=== PATIENT | female | born 1985 | race Caucasian/White ===

== ENCOUNTER 2018-11-22 06:00 | Inpatient (IN) ==
[2018-11-22] MEDS ORDERED: Famotidine 20 MG/2 ML VIAL IVP PRN (06:20)
[2018-11-22] MEDS ORDERED: *HR* Nalbuphine 10 MG/ML AMPUL IVP PRN (06:20)
[2018-11-22] MEDS ORDERED: Metoclopramide 10 MG/2 ML VIAL IVP PRN (06:20)
[2018-11-22] MEDS ORDERED: Naloxone 0.4 MG/ML INJ IVP PRN (06:20)
[2018-11-22] MEDS ORDERED: Ondansetron 4 MG/2 ML VIAL IVP PRN (06:20)
[2018-11-22] MEDS ORDERED: miSOPROStol 25 MCG TABLET PO PRN (06:20)
[2018-11-22 06:59] LABS: Basophils % 0.5 %; Eosinophils # 0.1 K/mcL (0.0-0.6); Eosinophils % 1.4 %; Hematocrit 34.2 % (35.3-44.9); Immature Granulocytes % 0.2 % (0-4); Lymphocytes # 2.3 K/mcL (0.6-4.6); Lymphocytes % 26.5 %; Mean Corpuscular HGB Conc 29.2 g/dL (31.6-35.5); Mean Corpuscular Hemoglobin 21.4 pg (28.0-33.3); Mean Corpuscular Volume 73.2 fL (83.0-100.0); Mean Platelet Volume 10.1 fL (9.4-12.4); Monocytes # 0.7 K/mcL (0.0-1.3); Monocytes % 8.1 %; Neutrophils # 5.4 K/mcL (1.6-8.9); Platelet Count 240 K/mcL (140-400); Red Blood Count 4.67 M/mcL (3.82-4.97); Red Cell Distribution Width 21.6 % (11.5-14.5); Segmented Neutrophils % 63.3 %
[2018-11-22 07:08] LABS: Amphetamine Screen,Urine Negative ng/mL (Cutoff=1000); Barbiturate Screen,Urine Negative ng/mL (Cutoff=200)
[2018-11-22 07:09] LABS: Benzodiazepines Screen,Urine Negative ng/mL (Cutoff=300); Cannabinoid Screen,Urine Negative ng/mL (Cutoff = 50); Cocaine Screen,Urine Negative ng/mL (Cutoff= 300); Opiate Screen,Urine Negative ng/mL (Cutoff=300); Phencyclidine Screen,Urine Negative ng/mL (Cutoff=25)
[2018-11-22 07:26] LABS: Platelet Estimate Normal (Normal)
--- NOTE | 2018-11-22 07:42 | Anesthesia Evaluation PreOp ---
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 HX Other Medical History: Other (anemia (iron def), [place], BMI= 42, previous gastric sleeve 2016,) Anesthesia History: No Prior Anesthetic Complications, Past Anesthesia Alcohol Use: none Drug use: none Medications and Allergies Cetirizine HCl [Zyrtec] 10 mg PO DAILY 10/20/18 [History] Cholecalciferol (Vitd3)/Vit K2 [Dosoquin Tablet] 1 each PO DAILY 10/20/18 [History] Citalopram [CeleXA] 20 mg PO DAILY 10/20/18 [History] Iron Polysaccharide Complex [Pro Fe] 180 mg PO TID 10/20/18 [History] Leucovorin/Pyridox/Mecobalamin [Folinic-Plus Caplet] 1 each PO DAILY 10/20/18 [History] Montelukast [Singulair] 10 mg PO DAILY 10/20/18 [History] Pantoprazole Sodium [Protonix] 40 mg PO DAILY 10/20/18 [History] Vit #108/Iron/FA [ One Tablet] 1 each PO DAILY 10/20/18 [History] Allergy/AdvReac Type Severity Reaction Status Date / Time dextromethorphan Allergy Hives Verified 10/20/18 14:49 [From Supress DX] guaifenesin [From Supress DX] Allergy Hives Verified 10/20/18 14:49 phenylephrine Allergy Hives Verified 10/20/18 14:49 [From Supress DX] Sulfa (Sulfonamide Allergy Hives Verified 10/20/18 14:49 Antibiotics) Anesthesia Results - Labs 11/22/18 06:46 Anesthesia Exam - HEENT Pupil (Motor): Pupils equal Mallampati: II Teeth: Normal Oral Opening: Greater than 3 - MARKETING FINANCIAL ANALYST LOC: Oriented MARKETING FINANCIAL ANALYST Motor: Normal RUE, Normal LUE, Normal RLE, Normal LLE, Normal Face MARKETING FINANCIAL ANALYST Sensory: Normal: RUE, LUE, RLE, LLE, Face - Cardiac Rhythm: Regular Murmur: None - Pulmonary Breath Sounds: bilateral Clear Respiratory Effort: Symmetrical Anesthesia Assess/Plan ASA Score: 3 (MO, asthma,) Level of consciousness: Cooperative, Oriented Anesthetic Plan: General, Spinal, Epidural Monitoring Plan: Standard Monitors Recovery Plan: PACU
[2018-11-22] MEDS ORDERED: Epidural Premix (fent/bupiv) 110 ML EP SCH (07:45)
--- NOTE | 2018-11-22 08:42 | OB Labor Progress Note ---
Date of Encounter: 11/22/18 Time of Encounter: 08:34 Labor Progress Note - Subjective Subjective: Patient reports she is comfortable and feels few contractions. - Cervix Cervix: 1/60/-3 - Heart Tones Heart Tones: FHR category I - [place]: Few - Interventions Interventions: SVE Double arora balloon catheter placed per Dr. Russell's request and each balloon inflated with 60ml saline - Plan Physician notified: No Plan: Continue induction management per Dr. Russell's plan Anticipate
[2018-11-22] MEDS: Ringers Solution, Lactated 1,000 ML IVC SCH ×2 (10:22→16:23)
[2018-11-22] MEDS ORDERED: Lidocaine -MPF 2% 5 ML VIAL ONE (10:41)
--- NOTE | 2018-11-22 14:31 | Anesthesia Procedures ---
Date of Encounter: 11/22/18 Time of Encounter: 14:06 Procedures: Anesthesia - Epidural/Spinal Patient ID/Chart reviewed: Yes Patient examined: Yes OB Eval: Gestational age: term OB Eval: : 2 OB Eval: Hx Para: 0 OB Eval: Contractions: Non-stressed pattern (previous late jun/ ) Consent Obtained: Yes Supplemental Oxygen: None/Room Air Site Prep: Aseptic Technique, Sterile prep and drape, 0.5% Chlorhexidine/Alcohol Patient position: upright Local Anesthetic: Lidocaine 1% Amount of Local Anesthetic used: 2 Touhy Needle Gauge: 18 Touhy Needle Depth (cm): 8 Catheter Depth at Skin (cm): 14 Test Dose (1.5% Lido + Epi): Volume given (mls): 4 Test Dose Result: Negative Loading Dose: Other: 10ml from solution Loading Dose Administered: Thru Catheter Infusion Med: 0.125% Bupivacaine w/ 2 mcg/ml Fentanyl Infusion Rate (mls/hr): [address]: Tegaderm, Tape Interspace Used: L3-L4 Loss of Resistance (JAYNA): Yes (saline) Blood: No CSF: Yes (with 25g sprotte purposeful, no INJ.) Paresthesia: No Procedure: vss though out, FHR stable per RN's
[2018-11-22] MEDS ORDERED: Oxytocin 20 units/ LR 1000 mL 20 UNIT/1,000 ML BAG IVC ONE (16:20)
[2018-11-22] MEDS ORDERED: Oxytocin 20 units/ LR 1000 mL 20 UNIT/1,000 ML BAG IVC SCH (16:30)
--- NOTE | 2018-11-22 17:30 | OB/GYN History & Physical ---
Date of Encounter: 11/22/18 Time of Encounter: 08:20 Assessment and Plan (1) 39 weeks gestation of Current visit: Yes Status: Acute 33yo female at 39w2d presents for induction of labor. Will begin cytotec and place arora when able. Expect . History of Present Illness Chief complaint: Here for induction of labor HPI: Ms. Laughlin is a 33 year old female female presents for induction of labor. She is currently 29w2d EGA. thus far was uncomplicated. On arrival she reports irregular uc's, no vb or lof. Past Med Surg Social Fam HX - Past Medical History Source: patient, old records reviewed Medical history: asthma Additional medical history: anemia Psychiatric history: depression - Past Surgical History Additional surgical history: gastric sleeve, T&A, septoplasty - Social History Smoking Status: Never smoker Smokeless Tobacco Status: No Alcohol use: none Drug use: none - Family History Mother Age: 65 Living Status: Still Living Hx Family Cardiac Disorders: No Hx Family Respiratory Disorders: No Hx Family Cancer: No Hx Family GI Disorders: No Hx Family Genitourinary Disorders: No Hx Family Endocrine Disorder: No Hx Family Musculoskeletal Disorders: No Hx Family Neuromuscular Disorders: No Hx Family Neurologic Disorders: No Hx Family HEENT Disorders: No Hx Family Autoimmune Disorders: No Hx Family Reproductive Disorders: No Hx Family Psychosocial Disorders: No Hx Family Medical Disorders: Yes (hypothroid) Obstetrical History - Pregnancies : 2 Ab's: 1 Medications and Allergies Cetirizine HCl [Zyrtec] 10 mg PO DAILY 10/20/18 [History] Cholecalciferol (Vitd3)/Vit K2 [Dosoquin Tablet] 1 each PO DAILY 10/20/18 [History] Citalopram [CeleXA] 20 mg PO DAILY 10/20/18 [History] Iron Polysaccharide Complex [Pro Fe] 180 mg PO TID 10/20/18 [History] Leucovorin/Pyridox/Mecobalamin [Folinic-Plus Caplet] 1 each PO DAILY 10/20/18 [History] Montelukast [Singulair] 10 mg PO DAILY 10/20/18 [History] Pantoprazole Sodium [Protonix] 40 mg PO DAILY 10/20/18 [History] Vit #108/Iron/FA [ One Tablet] 1 each PO DAILY 10/20/18 [History] Allergy/AdvReac Type Severity Reaction Status Date / Time dextromethorphan Allergy Hives Verified 10/20/18 14:49 [From Supress DX] guaifenesin [From Supress DX] Allergy Hives Verified 10/20/18 14:49 phenylephrine Allergy Hives Verified 10/20/18 14:49 [From Supress DX] Sulfa (Sulfonamide Allergy Hives Verified 10/20/18 14:49 Antibiotics) Exam - Vital Signs Vital signs: Initial Vital Signs Pulse Resp BP 71 15 121/73 11/22/18 06:24 11/22/18 06:24 11/22/18 06:24 - Constitutional Constitutional: well developed - HEENT HEENT: EOMI, PERRL - Neck Neck exam: full ROM - Lungs Respiratory exam: CTAB - Cardiovascular Cardiovascular exam: RRR - Abdomen Abdomen: Present: gravid - Extremities Extremities exam: full ROM - Cervix Dilation: 1 Effacement: 60 Station: -2 Results Result Diagrams: 11/22/18 06:46 Abnormal lab results Hgb 10.0 g/dL (11.5-15.4) L 11/22/18 06:46 Hct 34.2 % (35.3-44.9) L 11/22/18 06:46 MCV 73.2 fL (83.0-100.0) L 11/22/18 06:46 MCH 21.4 pg (28.0-33.3) L 11/22/18 06:46 MCHC 29.2 g/dL (31.6-35.5) L 11/22/18 06:46 RDW 21.6 % (11.5-14.5) H 11/22/18 06:46 All other labs normal. - VTE Reasons for not Prescribing Prophylaxis: Treatment not Indicated - Low risk for VTE
--- NOTE | 2018-11-22 17:42 | OB Labor Progress Note ---
Date of Encounter: 11/22/18 Time of Encounter: 17:40 Labor Progress Note - Subjective Subjective: Pt reports stronger uc's on pit - Cervix Cervix: Pt reports uc's getting stronger on pitocin. Rollins remains in place. - Heart Tones Heart Tones: RNST - Plan Plan: Continue labor.
--- NOTE | 2018-11-22 22:00 | OB Labor Progress Note ---
Date of Encounter: 11/22/18 Time of Encounter: 21:58 Labor Progress Note - Subjective Subjective: Pt comfortable with epidural - Cervix Cervix: 7/80/-2 - Heart Tones Heart Tones: FHT's 110's with good variability. Roberto variable decels to upper 80's lasting 20-30 seconds noted. - Interventions Interventions: FSE and IUP placed, ptiocin turned off b/c of freq decels. Will give amnio infusion. - Plan Plan: Watch FHT's closely. Pt also with sig blood tinged fluid that appears to be likely from cervical change, but will watch closely. D/w pt concern over decels and possiblity of abruption and d/w pt fact that may be required if situation doesn't improve.
[2018-11-22] MEDS ORDERED: 0.9 % Sodium Chloride 1,000 ML ONE (22:05)
[2018-11-23] MEDS ORDERED: Lidocaine/EPI 1:200k 2% PF 20 ML VIAL ONE (02:07)
--- NOTE | 2018-11-23 02:12 | OB Labor Progress Note ---
Date of Encounter: 11/23/18 Time of Encounter: 02:09 Labor Progress Note - Subjective Subjective: Pt comfortable - Cervix Cervix: 5/90/-2 - Heart Tones Heart Tones: 110's with decels noted. 5 min decel to 90 noted. - Interventions Interventions: pit off - Plan Plan: Pt with recurrent decels and no progress in labor, actually cervix is less dilated now that at time arora came out. D/w pt concern over intollerance to labor and lack of progress. D/w pt options and will proceed with primar c- section.
[2018-11-23] MEDS ORDERED: Ondansetron 4 MG/2 ML VIAL ONE (02:19)
[2018-11-23] MEDS ORDERED: Ringers Solution, Lactated 1,000 ML ONE (02:20)
[2018-11-23] MEDS ORDERED: Naloxone 0.4 MG/ML INJ IVP PRN ×2 (02:34→05:55)
[2018-11-23] MEDS ORDERED: *HR* HYDROmorphone (PF) 1 MG/ML SYRINGE IVP PRN ×2 (02:34)
[2018-11-23] MEDS ORDERED: *HR* Promethazine 25 MG/ML VIAL IVP PRN (02:34)
[2018-11-23] MEDS ORDERED: *HR* OxyCODONE/APAP 5/325 TABLET PO PRN ×2 (02:34→05:55)
[2018-11-23] MEDS ORDERED: Acetaminophen IV 1,000 MG/100 ML INFUS..BTL IVPB ONE (02:34)
[2018-11-23] MEDS ORDERED: *HR* Meperidine 25 MG/ML SYRINGE IVP PRN (02:34)
[2018-11-23] MEDS ORDERED: Ibuprofen 400 MG TABLET PO PRN (02:34)
[2018-11-23] MEDS ORDERED: Ondansetron 4 MG/2 ML VIAL IVP ONE (02:34)
[2018-11-23] MEDS ORDERED: *HR* OxyCODONE Immed Rel 5 MG TABLET PO PRN (02:34)
[2018-11-23] MEDS ORDERED: *HR* Oxytocin 10 UNIT/ML VIAL IM ONE (02:35)
--- NOTE | 2018-11-23 02:38 | OB Labor Progress Note ---
Date of Encounter: 11/23/18 Time of Encounter: 02:07 Labor Progress Note - Subjective Subjective: Pt comfortable with epidural - Cervix Cervix: /-2
[2018-11-23] MEDS ORDERED: Ringers Solution, Lactated 1,000 ML IVC SCH ×2 (02:45→05:55)
[2018-11-23] MEDS ORDERED: *HR* Morphine Sulfate/PF 10 MG/10 ML AMPUL ONE (02:58)
--- NOTE | 2018-11-23 03:21 | OB/GYN Procedure Note ---
Section - Date of procedure: 11/23/18 Preop diagnosis: arrest of descent, arrest of dilation, category 2 FHT tracing Post-op diagnosis: other (Nuchal cord 2) Procedure: section, primary low transverse Surgeon: Rodrick James Blood Loss: [phone] Was there an nurses medical assistants phlebotomists present: Yes Peritoneal Dialysis Registered Nurse: Elizabeth Gibson Anesthesiologist: Nettie Yeung Tape Sewer: Pj Samson Anesthesia Type: Epidural section complications: none Disposition: L&D Recovery Room Specimens: Placenta - Infant (s) A Infant Delivery Date: 11/23/18 Infant Delivery Time: 02:35 Presentation: vertex Gender: Male Viability: Viable Gram Weight: 3.095 kg at 1 minute: 8 at 5 minutes: 9 Shoulder Dystocia: not encountered Specimens collected: cord blood Placenta: spontaneous Cord: nuchal cord (2) - Narrative Narrative: 33-year-old 2 para 0 female sent labor and delivery for induction of labor. She underwent Cytotec and Rollins induction as well as Pitocin. Throughout the day she did have reactive nonstress test other with occasional variable decelerations. 2 then undergo Cytotec induction with Rollins catheter initially 1 point she was felt to be 7 cm dilated however she begin having more frequent and prolonged decelerations last of which lasted approximately 5 minutes down to heartbeat of 80-85 bpm baseline 1:15. This time cervix is now felt to be 5-6 cm dilated 90% effaced and -2 station. Because she was now having more frequent and more prolonged decelerations and make any progress were having Pitocin off decision was made be best to proceed with primary section for failure to progress in labor and intolerance to labor. Patient was aware of options as well as operative risks and signed appropriate consent. Description procedure: Patient was taken operating room where the epidural was dosed. She is prepped draped in usual sterile fashion bladder was drained of clear urine with Rollins catheter. Scalpel was used to make incision which was sharply taken down the rectus fascia. Fascia incised midline fascial incision was extended bilaterally. Plan is developed and rectus muscle rectus fascia distally peritoneum was entered bluntly without difficulty. Bladder blade was placed and bladder flap was developed and lower uterine segment. Scalpel was used to make a low transverse uterine incision this was extended bl untly bilaterally. We did attempt to deliver from vertex presentation however this was somewhat difficult therefore Kiwi vacuum was applied times to a pressure of 550 mmHg maximum. Each time the Kiwi did pop off and eventually we were able to deliver the baby from vertex presentation with fundal pressure. Once infant was delivered to was nuchal cord 2 which was reduced. Cord was clamped and cut and was handed nurse personnel who were in attendance. weight was found to be 6 lbs. 13 oz. this male infant's Apgars were 8 at 1 minute and 9 at 5 minutes. Placenta was delivered manually without difficulty and uterine cavity was massaged free of all residual tissue. Uterus was closed with an 0 Vicryl running lock stitch. After closure of the uterus again patient's performed hemostasis was ensured. Fascia was closed with oh loop PDS in running manner. After closure of the fascia again irrigation was performed hemostasis was ensured. Deep subcutaneous tissue was closed with oh plain catgut suture. Skin edges reapproximated with 4-0 Vicryl. Amador dressing was applied all sponge counts counts are correct patient was taken recovery in good condition
[2018-11-23] MEDS ORDERED: Ondansetron 4 MG/2 ML VIAL IVP PRN (05:55)
[2018-11-23] MEDS ORDERED: Rho Immune Globulin 1,500 UNIT SYRINGE IM ONE (05:55)
[2018-11-23] MEDS ORDERED: Oxytocin 20 units/ LR 1000 mL 20 UNIT/1,000 ML BAG IVC SCH ×2 (05:55)
[2018-11-23] MEDS ORDERED: Sennosides 8.6 MG TABLET PO PRN (05:55)
[2018-11-23] MEDS ORDERED: Metoclopramide 10 MG/2 ML VIAL IVP PRN (05:55)
[2018-11-23] MEDS: Prenatal Vit/FA 1 EACH TABLET PO SCH (08:58)
[2018-11-23] MEDS: Loratadine 10 MG TABLET PO SCH (08:58)
[2018-11-23] MEDS: metroNIDAZOLE 500 MG TABLET PO SCH ×2 (14:08→20:58)
[2018-11-23] MEDS: cephALEXin 500 MG CAPSULE PO SCH (14:08)
[2018-11-23] MEDS: Ibuprofen 600 MG TABLET PO PRN (20:58)
[2018-11-24] MEDS: Simethicone 80 MG TAB.CHEW PO PRN ×2 (04:30→20:56)
[2018-11-24] MEDS: Ibuprofen 600 MG TABLET PO PRN ×2 (04:31→17:37)
[2018-11-24 04:58] LABS: Immature Granulocytes % 0.3 % (0-4)
[2018-11-24 04:59] LABS: Basophils % 0.3 %; Eosinophils # 0.2 K/mcL (0.0-0.6); Eosinophils % 1.7 %; Hematocrit 26.7 % (35.3-44.9); Hemoglobin 7.7 g/dL (11.5-15.4); Lymphocytes # 2.3 K/mcL (0.6-4.6); Lymphocytes % 22.4 %; Mean Corpuscular HGB Conc 28.8 g/dL (31.6-35.5); Mean Corpuscular Hemoglobin 21.6 pg (28.0-33.3); Mean Platelet Volume 11.1 fL (9.4-12.4); Monocytes # 1.1 K/mcL (0.0-1.3); Monocytes % 10.5 %; Neutrophils # 6.7 K/mcL (1.6-8.9); Platelet Count 184 K/mcL (140-400); Red Blood Count 3.56 M/mcL (3.82-4.97); Segmented Neutrophils % 64.8 %
[2018-11-24 05:44] LABS: Anisocytosis 2+ (Not Present); Platelet Estimate Normal (Normal)
[2018-11-24 05:45] LABS: Hypochromasia Present (Not Present); Microcytosis Present (Not Present)
--- NOTE | 2018-11-24 09:05 | OB/GYN Progress Note ---
Date of Encounter: 11/24/18 Time of Encounter: 09:03 - Assessment and Plan (1) delivery delivered Current Visit: Yes Status: Acute Stable POD#1 Will increase iron to BID Continue all other current management Anticipate discharge tomorrow (2) anemia Current Visit: Yes Status: Acute will increase to iron BID (3) Mother currently breast-feeding Current Visit: Yes Status: Acute Subjective - Subjective Interval history: Stable, pain well managed, tolerates po diet, breast feeding, Patient reports: appetite normal, voiding normally, pain well controlled : doing well, nursing well Objective - Vital Signs Latest vital signs: Vital Signs Temp Pulse Resp BP Pulse Ox 11/24/18 00:45 97.9 F 73 14 109/70 99 11/23/18 20:55 98.2 F 80 14 109/71 99 11/23/18 17:30 16 11/23/18 17:15 99.1 F 87 16 117/70 11/23/18 13:07 98.1 F 71 16 114/75 Intake and Output 11/23/18 11/24/18 11/24/18 23:59 07:59 15:59 Intake Total 590 / 1290 Output Total 1800 / 1975 900 / 900 Balance -1210 / -685 -900 / -900 Intake: Oral 590 / 1290 Output: Urine 600 / 600 900 / 900 Catheter 1200 / 1375 Other: Meal Dinner Percent of Meal Consumed 100% Weight 110.087 kg Patient Weight 11/24/18 23:59 Weight 110.087 kg - Exam Lungs: bilateral: normal Chest: Normal S1, Normal S2 Extremities: Present: normal Abdomen: Present: normal appearance, soft Incision: Present: dressed (BLANCA) Uterus: Present: firm (U) - Labs Labs: Laboratory Results - last 24 hr 11/24/18 04:22 WBC 10.3 RBC 3.56 L Hgb 7.7 L D Hct 26.7 L MCV 75.0 L MCH 21.6 L MCHC 28.8 L RDW 21.0 H Plt Count 184 MPV 11.1 Immature Gran % 0.3 Seg Neutrophils % 64.8 Lymphocytes % 22.4 Monocytes % 10.5 Eosinophils % 1.7 Basophils % 0.3 Neutrophils # 6.7 Lymphocytes # 2.3 Monocytes # 1.1 Eosinophils # 0.2 Basophils # 0.0 Platelet Estimate Normal Hypochromasia Present A Anisocytosis 2+ A Microcytosis Present A
[2018-11-24] MEDS: Prenatal Vit/FA 1 EACH TABLET PO SCH (10:23)
[2018-11-24] MEDS: Loratadine 10 MG TABLET PO SCH (10:24)
[2018-11-24] MEDS: cephALEXin 500 MG CAPSULE PO SCH ×2 (10:24→20:55)
[2018-11-24] MEDS: metroNIDAZOLE 500 MG TABLET PO SCH (10:24)
[2018-11-25] MEDS: Ibuprofen 600 MG TABLET PO PRN (01:04)
[2018-11-25 07:48] LABS: Basophils % 0.7 %; Eosinophils # 0.2 K/mcL (0.0-0.6); Eosinophils % 4.3 %; Hematocrit 24.7 % (35.3-44.9); Hemoglobin 7.2 g/dL (11.5-15.4); Immature Granulocytes % 0.5 % (0-4); Lymphocytes # 1.5 K/mcL (0.6-4.6); Lymphocytes % 26.7 %; Mean Corpuscular HGB Conc 29.1 g/dL (31.6-35.5); Mean Corpuscular Hemoglobin 21.6 pg (28.0-33.3); Mean Corpuscular Volume 74.2 fL (83.0-100.0); Mean Platelet Volume 10.7 fL (9.4-12.4); Monocytes # 0.5 K/mcL (0.0-1.3); Monocytes % 8.5 %; Neutrophils # 3.3 K/mcL (1.6-8.9); Platelet Count 180 K/mcL (140-400); Red Blood Count 3.33 M/mcL (3.82-4.97); Red Cell Distribution Width 21.3 % (11.5-14.5); Segmented Neutrophils % 59.3 %
[2018-11-25] MEDS: Prenatal Vit/FA 1 EACH TABLET PO SCH (08:04)
[2018-11-25] MEDS: metroNIDAZOLE 500 MG TABLET PO SCH (08:04)
[2018-11-25] MEDS: cephALEXin 500 MG CAPSULE PO SCH (08:04)
[2018-11-25] MEDS: Loratadine 10 MG TABLET PO SCH (08:05)
[2018-11-25 09:27] VITALS: BP 120/76
--- NOTE | 2018-11-25 10:18 | Discharge Summary ---
Date of Encounter: 11/25/18 Time of Encounter: 10:14 - Discharge Diagnosis (1) delivery delivered Priority: Primary Status: Acute Comments: Pt meeting all post-op milestones. Pain well controlled. Tolerating regular t. Voiding spontaneously. Passing flatus. Mood is good. She denies any s/sx anemia. She is requesting discharge home as soon as possible. Anemia discussed at length including concern that her hgb is down to 7.2 from 7.7 yesterday. I discussed concern that it could continue to drop and pt could need transfusion. Pt still desires discharge home. Strict return precautions given. (2) Mother currently breast-feeding Priority: Secondary Status: Acute Comments: well established. Pt has pump at home. (3) anemia Priority: Secondary Status: Acute Comments: home on iron BID - Discharge Medications Prescriptions: New metroNIDAZOLE [Flagyl] 500 mg PO BID #14 tablet cephALEXin [Keflex] 500 mg PO BID #14 capsule Ibuprofen [Motrin] 600 mg PO Q6H PRN #60 tablet PRN Reason: Cramping OxyCODONE/APAP 5/325 [Percocet 5/325 MG] 1 each PO Q6HR PRN 7 Days #28 tablet PRN Reason: Moderate pain 4-6 Docusate [Colace] 100 mg PO BID #60 capsule Simethicone [Gas-X] 80 mg PO TID PRN tab.chew PRN Reason: Dyspepsia Continued Cetirizine HCl [Zyrtec] 10 mg PO DAILY Leucovorin/Pyridox/Mecobalamin [Folinic-Plus Caplet] 1 each PO DAILY Cholecalciferol (Vitd3)/Vit K2 [Dosoquin Tablet] 1 each PO DAILY Montelukast [Singulair] 10 mg PO DAILY Citalopram [CeleXA] 20 mg PO DAILY Vit #108/Iron/FA [ One Tablet] 1 each PO DAILY Iron Polysaccharide Complex [Pro Fe] 180 mg PO TID #90 capsule Discontinued Pantoprazole Sodium [Protonix] 40 mg PO DAILY Home Medications: Cetirizine HCl [Zyrtec] 10 mg PO DAILY 10/20/18 [History] Cholecalciferol (Vitd3)/Vit K2 [Dosoquin Tablet] 1 each PO DAILY 10/20/18 [History] Citalopram [CeleXA] 20 mg PO DAILY 10/20/18 [History] Leucovorin/Pyridox/Mecobalamin [Folinic-Plus Caplet] 1 each PO DAILY 10/20/18 [History] Montelukast [Singulair] 10 mg PO DAILY 10/20/18 [History] Vit #108/Iron/FA [ One Tablet] 1 each PO DAILY 10/20/18 [History] Docusate [Colace] 100 mg PO BID #60 capsule 11/25/18 [Rx] Ibuprofen [Motrin] 600 mg PO Q6H PRN #60 tablet 11/25/18 [Rx] Iron Polysaccharide Complex [Pro Fe] 180 mg PO TID #90 capsule 11/25/18 [Rx] OxyCODONE/APAP 5/325 [Percocet 5/325 MG] 1 each PO Q6HR PRN 7 Days #28 tablet 11/25/18 [Rx] Simethicone [Gas-X] 80 mg PO TID PRN tab.chew 11/25/18 [Rx] cephALEXin [Keflex] 500 mg PO BID #14 capsule 11/25/18 [Rx] metroNIDAZOLE [Flagyl] 500 mg PO BID #14 tablet 11/25/18 [Rx] Allergies/Adverse Reactions: Allergy/AdvReac Type Severity Reaction Status Date / Time dextromethorphan Allergy Hives Verified 10/20/18 14:49 [From Supress DX] guaifenesin [From Supress DX] Allergy Hives Verified 10/20/18 14:49 phenylephrine Allergy Hives Verified 10/20/18 14:49 [From Supress DX] Sulfa (Sulfonamide Allergy Hives Verified 10/20/18 14:49 Antibiotics) Data Procedures and tests throughout hospitalization: Laboratory Tests 11/22/18 11/22/18 11/24/18 06:30 06:46 04:22 WBC 8.6 10.3 RBC 4.67 3.56 L Hgb 10.0 L 7.7 L D Hct 34.2 L 26.7 L MCV 73.2 L 75.0 L MCH 21.4 L 21.6 L MCHC 29.2 L 28.8 L RDW 21.6 H 21.0 H Plt Count 240 184 MPV 10.1 11.1 Immature Gran % 0.2 0.3 Seg Neutrophils % 63.3 64.8 Lymphocytes % 26.5 22.4 Monocytes % 8.1 10.5 Eosinophils % 1.4 1.7 Basophils % 0.5 0.3 Neutrophils # 5.4 6.7 Lymphocytes # 2.3 2.3 Monocytes # 0.7 1.1 Eosinophils # 0.1 0.2 Basophils # 0.0 0.0 Platelet Estimate Normal Normal Hypochromasia Present A Anisocytosis 2+ A Microcytosis Present A Urine Opiates Screen Negative Ur Barbiturates Screen Negative Ur Phencyclidine Scrn Negative Ur Amphetamines Screen Negative U Benzodiazepines Scrn Negative Urine Cocaine Screen Negative U Marijuana (THC) Screen Negative Ur Drug Screen Interp See Below 11/25/18 07:14 WBC 5.5 RBC 3.33 L Hgb 7.2 L Hct 24.7 L MCV 74.2 L MCH 21.6 L MCHC 29.1 L RDW 21.3 H Plt Count 180 MPV 10.7 Immature Gran % 0.5 Seg Neutrophils % 59.3 Lymphocytes % 26.7 Monocytes % 8.5 Eosinophils % 4.3 Basophils % 0.7 Neutrophils # 3.3 Lymphocytes # 1.5 Monocytes # 0.5 Eosinophils # 0.2 Basophils # 0.0 Platelet Estimate Hypochromasia Anisocytosis Microcytosis Urine Opiates Screen Ur Barbiturates Screen Ur Phencyclidine Scrn Ur Amphetamines Screen U Benzodiazepines Scrn Urine Cocaine Screen U Marijuana (THC) Screen Ur Drug Screen Interp Labs on day of discharge: Labs from last 24 hours 11/25/18 07:14 WBC 5.5 RBC 3.33 L Hgb 7.2 L Hct 24.7 L MCV 74.2 L MCH 21.6 L MCHC 29.1 L RDW 21.3 H Plt Count 180 MPV 10.7 Immature Gran % 0.5 Seg Neutrophils % 59.3 Lymphocytes % 26.7 Monocytes % 8.5 Eosinophils % 4.3 Basophils % 0.7 Neutrophils # 3.3 Lymphocytes # 1.5 Monocytes # 0.5 Eosinophils # 0.2 Basophils # 0.0 Date of admission: 11/22/18 06:19 Primary care physician: Natalia Baca CNP Discharging clinician: Chelsie Zhao Anticipated date of discharge: 11/25/18 - Patient Status Disposition: Home, Self-Care Condition: Good Functional capacity at discharge: independent ambulation Overall status at discharge: patient is progressing back to baseline - Discharge Instructions Follow Up With: Natalia Baca CNP [Primary Care Provider] - Rodrick Russell MD [Partnered Physician] - - Diet and Activity Activity: increase activity as tolerated Diet: regular diet Hospital Course Reason for admission: induction of labor Delivery: Episiotomy: none Laceration: none Other procedures: none complications: none Discharge diagnosis: IUP at term delivered [place] baby: male Hospital course: Date of procedure: 11/23/18 Preop diagnosis: arrest of descent, arrest of dilation, category 2 FHT tracing Post-op diagnosis: other (Nuchal cord 2) Procedure: section, primary low transverse Surgeon: Rodrick James Blood Loss: 600 Was there an membership assistant present: Yes Strip Winder: Elizabeth Gibson Anesthesiologist: Nettie Yeung Singer Back Tender: Pj Samson Anesthesia Type: Epidural section complications: none Disposition: L&D Recovery Room Specimens: Placenta - (s) Infant A Delivery Date: 11/23/18 Delivery Time: 02:35 Presentation: vertex Gender: Male Viability: Viable Gram Weight: 3.095 kg at 1 minute: 8 at 5 minutes: 9 Shoulder Dystocia: not encountered Specimens collected: cord blood Placenta: spontaneous Cord: nuchal cord (2) Time Attestation: Total time spent providing and/or coordinating discharge services: Time Spent: Less than 30 minutes - VTE Reasons for not Prescribing Prophylaxis: Treatment not Indicated - Low risk for VTE Documentation of Mechanical Device: Intermittent pneumatic compression device Exam - Constitutional Vitals: Temp Pulse Resp BP Pulse Ox 98.3 F 75 14 120/76 99 11/25/18 07:30 11/25/18 07:30 11/25/18 07:30 11/25/18 07:30 11/25/18 07:30 General appearance IM: A&O X 3 - Respiratory Respiratory exam: Present: CTAB - Cardiovascular Cardiovascular exam IM: Present: RRR - GI/Abdominal GI/Abdominal exam IM: soft, no peritoneal signs Incision: dressed (BLANCA with small amount old drainage) - Uterine Tone: Firm Uterus Position: 1 Finger Below Umbilicus (exam limited by pt habitus) - Extremities Exam Extremities exam IM: Present: normal inspection - Neurological Exam Neurological exam: normal gait, oriented X3 - Psychiatric Additional comments: reports good mood, declines contraception, safe spacing discussed. - Other Additional findings: [facility] reviewed
== END 2018-11-25 11:20 | disposition home or self-care (01) | DRG 788 ==
LOC: 1NENULAB 06:19 → 1NENUOBS 11-23 05:25
PROVIDERS: ADMIT Registered Nurse; ATTEND Registered Nurse

== ENCOUNTER 2022-03-27 05:38 | Inpatient (IN) ==
[2022-03-27] MEDS ORDERED: Ringers Solution, Lactated 1,000 ML ONE ×2 (06:06→06:55)
[2022-03-27] MEDS ORDERED: *HR* HYDROmorphone PF 0.5 MG/0.5 ML SYRINGE IVP PRN (06:33)
[2022-03-27] MEDS ORDERED: Acetaminophen IV 1,000 MG/100 ML BAG IVPB PRN (06:33)
[2022-03-27] MEDS ORDERED: *HR* Meperidine 25 MG/ML SYRINGE IVP PRN (06:33)
[2022-03-27] MEDS ORDERED: *HR* Labetalol 20 MG/4 ML SYRINGE IVP PRN (06:33)
[2022-03-27] MEDS ORDERED: Promethazine 6.25 MG in Water for inj. (sterile) 20 ML IVPB PRN (06:33)
[2022-03-27] MEDS ORDERED: Ringers Solution, Lactated 1,000 ML IVC ONE (06:51)
[2022-03-27] MEDS ORDERED: CeFAZolin Syr 3,000MG/30 ML 3,000 MG/30 ML SYRINGE IVPB ONE (06:51)
[2022-03-27] MEDS ORDERED: Famotidine 20 MG/2 ML VIAL IVP ONE (06:51)
[2022-03-27] MEDS ORDERED: Metoclopramide 10 MG/2 ML VIAL IVP ONE (06:51)
[2022-03-27] MEDS ORDERED: *HR* Morphine Sulfate/PF 10 MG/10 ML AMPUL ONE (06:54)
[2022-03-27] MEDS ORDERED: *HR* FentaNYL (PF) 100 MCG/2 ML VIAL ONE (06:54)
[2022-03-27] MEDS ORDERED: EPHEDrine 50 MG/ML VIAL ONE (06:54)
[2022-03-27] MEDS ORDERED: Ketorolac 30 MG/ML VIAL ONE (06:55)
[2022-03-27] MEDS ORDERED: Ondansetron 4 MG/2 ML VIAL ONE (06:55)
[2022-03-27] MEDS ORDERED: Acetaminophen IV 1,000 MG/100 ML BAG IVPB ONE (06:55)
[2022-03-27] MEDS ORDERED: Oxytocin 30 UNIT/503 ML BAG IVC SCH (07:00)
[2022-03-27] MEDS ORDERED: *HR* Phenylephrine 10 MG/ML VIAL ONE (07:01)
[2022-03-27 07:12] LABS: Basophils % 0.4 %; Eosinophils # 0.1 K/mcL (0.0-0.6); Eosinophils % 1.1 %; Hematocrit 38.6 % (35.3-44.9); Hemoglobin 11.9 g/dL (11.5-15.4); Immature Granulocytes % 0.3 % (0-4); Lymphocytes # 2.8 K/mcL (0.6-4.6); Lymphocytes % 26.6 %; Mean Corpuscular HGB Conc 30.8 g/dL (31.6-35.5); Mean Corpuscular Hemoglobin 25.2 pg (28.0-33.3); Mean Corpuscular Volume 81.8 fL (83.0-100.0); Mean Platelet Volume 11.3 fL (9.4-12.4); Monocytes # 0.8 K/mcL (0.0-1.3); Monocytes % 7.6 %; Neutrophils # 6.8 K/mcL (1.6-8.9); Platelet Count 276 K/mcL (140-400); Red Blood Count 4.72 M/mcL (3.82-4.97); Red Cell Distribution Width 17.8 % (11.5-14.5); White Blood Count 10.7 K/mcL (4.3-11.1)
[2022-03-27 09:05] LABS: Amphetamine Screen,Urine Negative ng/mL (Cutoff=1000); Barbiturate Screen,Urine Negative ng/mL (Cutoff=200); Benzodiazepines Screen,Urine Negative ng/mL (Cutoff=200); Cannabinoid Screen,Urine Negative ng/mL (Cutoff = 50); Cocaine Screen,Urine Negative ng/mL (Cutoff= 300); Opiate Screen,Urine Negative ng/mL (Cutoff=300); Phencyclidine Screen,Urine Negative ng/mL (Cutoff=25)
[2022-03-27] MEDS ORDERED: Ringers Solution, Lactated 1,000 ML IVC SCH (12:34)
[2022-03-27] MEDS ORDERED: Rho Immune Globulin 1,500 UNIT SYRINGE IM ONE (12:34)
[2022-03-27] MEDS ORDERED: Ondansetron 4 MG/2 ML VIAL IVP PRN (12:34)
[2022-03-27] MEDS ORDERED: *HR* OxyCODONE Immed Rel 5 MG TABLET PO PRN (12:34)
[2022-03-27] MEDS ORDERED: OXYTOCIN/RINGERS LACTATE 10 UNIT/166.6 ML BAG IVC ONE (12:34)
[2022-03-27] MEDS ORDERED: Metoclopramide 10 MG/2 ML VIAL IVP PRN (12:34)
[2022-03-27] MEDS ORDERED: Simethicone 80 MG TAB.CHEW PO PRN (12:34)
[2022-03-27] MEDS: Ibuprofen 600 MG TABLET PO SCH ×2 (13:09→20:19)
[2022-03-27] MEDS: Acetaminophen 325 MG TABLET PO SCH ×2 (13:09→20:18)
[2022-03-27] MEDS: metroNIDAZOLE 500 MG TABLET PO SCH (20:19)
[2022-03-27] MEDS: cephALEXin 500 MG CAPSULE PO SCH (20:20)
[2022-03-28] MEDS: *HR* Enoxaparin 60 MG/0.6 ML SYRINGE SQ SCH ×2 (00:17→08:53)
[2022-03-28] MEDS: Acetaminophen 325 MG TABLET PO SCH ×3 (02:08→14:24)
[2022-03-28] MEDS: Ibuprofen 600 MG TABLET PO SCH ×2 (02:08→11:25)
[2022-03-28 04:57] LABS: Basophils # 0.1 K/mcL (0.0-0.2); Basophils % 0.5 %; Eosinophils # 0.2 K/mcL (0.0-0.6); Eosinophils % 1.9 %; Hematocrit 31.9 % (35.3-44.9); Immature Granulocytes % 0.3 % (0-4); Lymphocytes # 2.8 K/mcL (0.6-4.6); Mean Corpuscular HGB Conc 30.4 g/dL (31.6-35.5); Mean Corpuscular Hemoglobin 25.1 pg (28.0-33.3); Mean Corpuscular Volume 82.4 fL (83.0-100.0); Mean Platelet Volume 11.1 fL (9.4-12.4); Monocytes # 0.8 K/mcL (0.0-1.3); Monocytes % 7.7 %; Neutrophils # 6.6 K/mcL (1.6-8.9); Platelet Count 197 K/mcL (140-400); Red Blood Count 3.87 M/mcL (3.82-4.97); Red Cell Distribution Width 17.5 % (11.5-14.5); Segmented Neutrophils % 62.6 %; White Blood Count 10.5 K/mcL (4.3-11.1)
[2022-03-28 04:59] LABS: Hemoglobin 9.7 g/dL (11.5-15.4)
[2022-03-28] MEDS: metroNIDAZOLE 500 MG TABLET PO SCH ×2 (08:49→14:24)
[2022-03-28] MEDS: cephALEXin 500 MG CAPSULE PO SCH ×2 (08:52→14:24)
[2022-03-28] MEDS ORDERED: Loratadine 10 MG TABLET PO SCH (09:00)
[2022-03-28] MEDS ORDERED: Prenatal Vit/FA 1 EACH TABLET PO SCH (09:00)
[2022-03-28 15:45] VITALS: BP 120/70; PULSE 82; TEMP 99; O2SAT 98
== END 2022-03-28 19:09 | disposition home or self-care (01) | DRG 785 ==
LOC: SAMDAY 05:38 → 1NENULAB 05:41 → 1NENUOBS 11:49
PROVIDERS: ADMIT Obstetrics & Gynecology; ATTEND Obstetrics & Gynecology